=== PATIENT | female | born 1940 | race Caucasian/White ===

== ENCOUNTER 2022-03-03 08:44 | Observation (INO) | payer MEDICARE, OTHER, SELFPAY ==
[2022-03-03] VITALS (15 sets, daily range): BP systolic 97–159; BP diastolic 51–101; PULSE 56–80; RESP 14–18; TEMP 36–36.9; O2SAT 93–98; BMI 30.7; BMI 27.2
--- NOTE | 2022-03-03 08:46 | CT_ITS ---
STUDY: CTA HEAD AND NECK WITH CONTRAST REASON FOR EXAM: Female, 81 years old. CVA RADIATION DOSAGE (If Supplied By Facility): CTDIvol = ( 8.02 ) mGy, DLP = ( 383.78 ) mGycm TECHNIQUE: CT angiography was performed with a multi-detector CT scanner. Data acquisition was obtained from the skull base through the vertex following intravenous administration of IV 100mL [id number]-370. MIP images were reconstructed from the axial data set. Post-processing of the angiographic images was performed, with multiplanar reformation and 3D reconstruction. Individualized dose optimization techniques were used for this CT. COMPARISON: No relevant priors. FINDINGS: Normal bilateral petrous carotid arteries. Minimal nonocclusive calcified plaques in the right cavernous carotid artery with a normal supraclinoid bifurcation. Minimal nonocclusive calcified plaques in the left cavernous carotid artery with a normal supraclinoid bifurcation. Normal right A1 segment of the anterior cerebral artery. Normal left A1 segment of the anterior cerebral artery. Normal intact anterior communicating artery (ACOM). Normal bilateral A2 segments of the anterior cerebral arteries. Normal right M1 segment but there are multiple small vessel noncalcified atherosclerotic plaques along the M2 segments of the middle cerebral arteries, with a normal M1 bifurcation. Normal left M1 segment but multiple small vessel noncalcified atherosclerotic plaques along the M2 segments of the middle cerebral arteries, with a normal M1 bifurcation. No visible right posterior communicating artery (PCOM). No visible left posterior communicating artery (PCOM). Normal bilateral vertebral arteries. Multiple small vessel plaques along the basilar artery with a normal basilar bifurcation. The visualized bilateral superior cerebellar (SCA) arteries are normal. Multiple small vascular plaques along the bilateral P1, P2 and visualized P3 segments of the posterior cerebral arteries. High-grade stenosis in the left P2 segment but no visible thromboembolic occlusion. There is no demonstrated aneurysm of the [place]. There is no demonstrated abnormality of the visualized brain. AORTIC ARCH: Normal visualized aortic arch. Normal origins of the brachiocephalic, left common carotid, and left subclavian arteries. RIGHT CAROTID ARTERIES: Normal right common carotid artery (CCA). 50% stenosis of the right carotid bulb origin. 50% stenosis of the origin of the right internal carotid (ICA) artery without a hemodynamically significant stenosis. Widely patent remaining visualized cervical portion of the right internal carotid artery. Normal origin of the right external carotid artery (ECA). LEFT CAROTID ARTERIES: Normal left common carotid artery (CCA). Normal left carotid bulb. Widely patent origin of the left internal carotid (ICA) artery without a hemodynamically significant stenosis. Normal visualized cervical portion of the left internal carotid artery. Normal origin of the left external carotid artery (ECA). VERTEBRAL ARTERIES: Normal bilateral vertebral arteries. Less than 50% stenosis of the left vertebral artery at its subclavian origin. Widely patent subclavian and origin of the right vertebral artery. CT/STROKE CTA Head AND Neck W/Con IMPRESSION: 1. No CTA evidence of thromboembolic occlusion of the anterior and posterior intracranial circulation. 2. Multiple small vessel atherosclerotic plaques along the bilateral middle cerebral arteries, posterior cerebral arteries and along the basilar artery. There is isolated high-grade stenosis in the left P2 segment of the posterior cerebral artery but no thromboembolic occlusion. 3. 50% stenosis at the origin of the right proximal internal carotid artery/carotid bulb. The remainder of the right cervical internal carotid artery is widely patent. Normal right common carotid artery. 4. Widely patent left common carotid artery, left cervical internal and external carotid arteries. 5. Widely patent codominant vertebral arteries. 6. Normal aortic arch and origins of the great vessels. N.B. : The above Results were Read Back by Luis Self MD to Diogo Dolan MD, and understanding confirmed on 03/03/2022 09:21:26 (ET). Electronically Signed: Luis Self MD at 9:28 EST ,
--- NOTE | 2022-03-03 08:46 | CT_ITS ---
We are attempting to reach an attending provider to discuss findings. An addendum with communication details will be sent when the communication is complete. EXAM: CT HEAD WITHOUT INTRAVENOUS CONTRAST CLINICAL INDICATION: CVA TECHNIQUE: Multiple axial images were obtained of the head without intravenous contrast. This CT exam was performed using one or more of the following dose reduction techniques: automated exposure control, adjustment of the mA and/or kV according to patient size, and/or use of iterative reconstruction technique. This report was created using [employer] technology. COMPARISON: None. FINDINGS: BRAIN AND EXTRA-AXIAL SPACES: Unremarkable. No intra- or extra-axial hemorrhage. No evidence of acute infarct. No intracranial mass or mass effect. There is preservation of the [place]/white matter interface. Posterior fossa structures are unremarkable. Ventricles are appropriate for age. No hydrocephalus. Basal cisterns are patent. BONES/JOINTS: Unremarkable. No discrete lytic or blastic abnormalities. SINUSES: Unremarkable as visualized. Clear. MASTOID AIR CELLS: Unremarkable. Clear. ORBITS: Visualized globes, extraocular muscles, optic nerves and retrobulbar fat appear unremarkable. CT/STROKE Brain/Head without Cont IMPRESSION: Negative head/brain CT without intravenous contrast. Electronically Signed: Luis Self MD at 9:05 EST ,
--- NOTE | 2022-03-03 08:51 | NURSING ---
0835 STROKE ALERT CALLED
--- NOTE | 2022-03-03 09:03 | EKG12_ITS ---
Test Reason : NEURO Blood Pressure : / mmHG Vent. Rate : 060 BPM Atrial Rate : 060 BPM P-R Int : 258 ms QRS Dur : 080 ms QT Int : 422 ms P-R-T Axes : 041 010 008 degrees QTc Int : 422 ms Sinus rhythm with 1st degree A-V block Inferior infarct , age undetermined Abnormal ECG Confirmed by BIRGIT BERNARD, YAEL ([id number]), state editor HERMINIA BANEGAS ([id number]) on 03/06/2022 12:19:07 PM Referred By: AKI Confirmed By:YAEL GENAO MD
--- NOTE | 2022-03-03 09:03 | RAD_ITS ---
EXAM: XR CHEST, 1 VIEW CLINICAL INDICATION: Neuro deficit, acute, stroke suspected TECHNIQUE: Frontal view of the chest. This report was created using [employer] report generation technology. COMPARISON: None. FINDINGS: LUNGS AND PLEURAL SPACES: Pulmonary hypoinflation. No suspicious infiltrates. No pneumothorax. No effusion. HEART: Unremarkable. Cardiac silhouette not enlarged. MEDIASTINUM: Central airways and mediastinal contour are unremarkable. BONES/JOINTS: Unremarkable. SOFT TISSUES: Unremarkable. LYMPH NODES: Calcified node in the right hilum. RAD/Chest 1 View IMPRESSION: No acute findings in the chest. Electronically Signed: Luis Self MD at 9:56 EST ,
[2022-03-03 09:13] LABS: Absolute Neutrophil Count 3.6 X10^3/uL (2.0-7.7); Basophil# 0.06 X10^3/uL; Basophil% 0.8 % (0-1); Eosinophil# 0.36 X10^3/uL; Hematocrit 41.1 % (37-47); Hemoglobin 13.7 g/dL (12.0-15.0); Lymphocyte % 31.9 % (19-41); Mean Corp Hgb Conc 33.3 g/dL (32-36); Mean Corpuscular Hgb 30.1 pg (27.0-32.0); Mean Corpuscular Volume 90.3 fL (81-99); Mean Platelet Vol. 11.6 fl (6.2-12.0); Monocyte# 0.78 X10^3/uL; Monocyte% 10.8 % (0-10); NRBC Flagged by Analyzer 0 % (0-5); Neutrophil # 3.59 X10^3/uL (2.7-7.7); Neutrophil % 49.7 % (47-70); Platelet Count 305 K/mm3 (150-450); RBC Distribution Width CV 12.4 % (11.6-14.6); RBC Distribution Width SD 40.7 fl (35.1-43.9); Red Blood Count 4.55 M/mm3 (4.2-5.4); White Blood Count 7.2 K/mm3 (4.4-11.0)
[2022-03-03 09:45] LABS: International Normalized Ratio 1.1; Partial Thromboplast Time 28.2 Seconds (24.1-36.2); Prothrombin Time (Protime)PT. 13.7 SECONDS (11.7-14.9)
[2022-03-03 09:49] LABS: Anion Gap 5 (5-15); BUN 12 mg/dL (7-18); BUN/Creat Ratio 15.2 RATIO (10-20); Calcium,Total 9.1 mg/dL (8.5-10.1); Chloride 108 mmol/L (98-107); Creatinine, Serum 0.79 mg/dL (0.55-1.02); EST Glomerular Filtration Rate 74 mL/min (>60); Est Glom Filt Rate - Afr Amer 90 mL/min (>60); Glucose 122 mg/dL (74-106); Potassium 3.9 mmol/L (3.5-5.1); Sodium Level 139 mmol/L (136-145); Troponin-I HS 4 pg/mL (3.0-54.0)
--- NOTE | 2022-03-03 09:58 | EX.ED.DYSGE1 ---
HPI History of Present Illness Chief Complaint: Neuro S/Sx Informant: patient and spouse/S.O. Narrative Narrative: 81-year-old female at 752 was sitting at her kitchen table with her eating breakfast. She states that she suddenly got profoundly weak and he helped hold her up but when he took his hand away she fell backwards. She was able to get over to the couch where she vomited and had a lot of nausea and discomfort in her epigastrium. She notes that she ended up having to have a bowel movement. She was not able to speak well. She notes that through the years she has had about 8 episodes of orthostatic hypotension. No specific cause was ever found. She denies chest pain or palpitations. states that she did not appear pale or sweaty. Symptoms lasted about 15 minutes before they called EMS. EMS note that on arrival in the emergency department she seemed to be speaking better. She was taken from the EMS cot directly to the CT scanner as per prehospital stroke protocol. EMS notes that she did have some incontinence [facility] Medical History Orthostatic hypotension Rheumatoid arthritis Home Medications calcium 600 mg capsule 600 mg PO DAILY 03/03/22 [History Last Taken Unknown] cholecalciferol (vitamin D3) 50 mcg (2,000 unit) capsule (Vitamin D3) 100 mcg PO DAILY 03/03/22 [History Last Taken Unknown] thierno (Zingiber officinalis) 250 mg capsule (thierno extract) 500 mg PO DAILY 03/03/22 [History Last Taken Unknown] glucosamine sulfate 500 mg tablet (Glucosamine) 500 mg PO BID 03/03/22 [History Last Taken Unknown] uxwbkhcwjejh-nkvybgse-mztwwy tablet 1 tab PO DAILY 03/03/22 [History Last Taken Unknown] Allergy/AdvReac Type Severity Reaction Status Date / Time NSAIDS (Non-Steroidal Allergy Other Verified 03/03/22 09:10 Anti-Inflamma Social History Smoking Status: Never smoker ROS ROS ED Constitutional Constitutional ED: Denies chills or weight loss Eyes Eyes: Denies change in vision or diplopia ENT ENT ED: Denies ear pain, rhinorrhea or sore throat Cardiovascular Cardiovascular: Reports other Details: Near syncope ; Denies chest pain, orthopnea, palpitations or racing heartbeat Respiratory/Chest Respiratory/Chest: Denies cough, dyspnea or orthopnea Gastrointestinal Gastrointestinal: Denies abdominal pain, diarrhea, nausea or vomiting Genitourinary Genitourinary ED: Denies dysuria, hematuria or urinary frequency Musculoskeletal Musculoskeletal: Denies arthralgias or myalgias Integumentary Denies abscess or rash Neurologic Neurologic: Reports other Details: Speech difficulty ; Denies headache(s) or weakness Psychiatric Psychiatric: Denies anxiety, depression, suicidal ideation or suicidal thoughts Endocrine Endocrinology: Denies polydipsia, polyphagia or polyuria Allergic/Immunologic Allergic/Immunologic ED: Denies mouth swelling, tongue swelling or urticaria EXAM Physical Exam Const Vital Signs: 03/03/22 08:45 03/03/22 09:02 03/03/22 09:03 Temperature 96.8 F L 96.8 F L Temperature Source Axillary Axillary Pulse Rate 68 64 64 Pulse Rate [Lying] Pulse Rate [Sitting (for 1 minute prior to obtaining)] Pulse Rate [Standing (for 1 minute prior to obtaining)] Respiratory Rate 16 18 18 Blood Pressure 144/72 H 155/51 H 155/51 H Blood Pressure [Lying] Blood Pressure [Sitting (for 1 minute prior to obtaining)] Blood Pressure [Standing (for 1 minute prior to obtaining)] Blood Pressure Mean 96 85 85 Blood Pressure Mean [Lying] Blood Pressure Mean [Sitting (for 1 minute prior to obtaining)] Blood Pressure Mean [Standing (for 1 minute prior to obtaining)] Pulse Ox 98 94 95 Oxygen Delivery Method Room Air Room Air Room Air 03/03/22 09:03 03/03/22 09:47 03/03/22 10:00 Temperature Temperature Source Pulse Rate 59 L Pulse Rate [Lying] 59 L Pulse Rate [Sitting (for 1 minute prior to obtaining)] 57 L Pulse Rate [Standing (for 1 minute prior to obtaining)] 69 Respiratory Rate 17 Blood Pressure 97/62 Blood Pressure [Lying] 150/59 H Blood Pressure [Sitting (for 1 minute prior to obtaining)] 154/70 H Blood Pressure [Standing (for 1 minute prior to obtaining)] 159/57 H Blood Pressure Mean 73 Blood Pressure Mean [Lying] 89 Blood Pressure Mean [Sitting (for 1 minute prior to obtaining)] 98 Blood Pressure Mean [Standing (for 1 minute prior to obtaining)] 91 Pulse Ox 95 96 Oxygen Delivery Method Room Air Room Air Positive well nourished and well developed General Appearance ED: well developed HEENT Reports normocephalic, head/scalp atraumatic and moist mucous membranes Eyes PERRL and EOMs intact bilaterally Neck no lymphadenopathy, supple and no JVD Resp normal respiratory effort and clear to auscultation bilaterally Cardio regular rate, regular rhythm and no murmurs GI normal to inspection, nondistended, normoactive bowel sounds and non-tender Palpation: soft Back/Spine no CVA tenderness and normal ROM Extremity normal to inspection General Extremety ED: Negative for edema General Extremity: Negative for edema Neuro oriented x3 and CN's II-XII intact bilaterally Sensorium / Orientation: alert Motor Exam: strength 5/5 throughout Psych mental status grossly normal Mood & Affect: Negative for depressed or tearful Skin no rashes or lesions noted and no wounds MDM MDM MDM Narrative Medical decision making narrative: Head CT and CTA of the head were negative for acute stroke or large vessel occlusion. Microvascular changes were noted. Hemoglobin 13.7 with a white count of 7.2. Troponin is 4. Creatinine 0.79. Her EKG is a normal sinus rhythm with no concerning features of ACS. My interpretation of the chest x-ray is no acute process. The patient is not orthostatic. She was interviewed by neurology who recommends observation and an MRI Lab Data Attestation: I reviewed the patient's lab results. Labs: Laboratory Results - last 24 hr 03/03/22 03/03/22 03/03/22 08:23 08:23 08:23 WBC 7.2 RBC 4.55 Hgb 13.7 Hct 41.1 MCV 90.3 MCH 30.1 MCHC 33.3 RDW Std Deviation 40.7 RDW Coeff of Lonnie 12.4 Plt Count 305 MPV 11.6 Immature Gran % (Auto) 1.800 H Neut % (Auto) 49.7 Lymph % (Auto) 31.9 [place] % (Auto) 10.8 H Eos % (Auto) 5.0 Baso % (Auto) 0.8 Absolute Neuts (auto) 3.6 Absolute Lymphs (auto) 2.30 Nucleated RBC % 0 PT 13.7 INR 1.1 APTT 28.2 Sodium 139 Potassium 3.9 Chloride 108 H Carbon Dioxide 26.0 Anion Gap 5 BUN 12 Creatinine 0.79 Estim Creat Clear Calc 34.90 Est GFR (MDRD) Af Amer 90 Est GFR (MDRD) Non-Af 74 BUN/Creatinine Ratio 15.2 Glucose 122 H Calcium 9.1 Troponin I High Sens 4 Radiography Diagnostic Testing: Clinical Impression(s) from Imaging Studies Brain CT 03/03/22 08:46 IMPRESSION: Negative head/brain CT without intravenous contrast. Electronically Signed: Luis Self MD at 9:05 EST , ADDENDUM: 03/03/22914 IMPRESSION: Negative head/brain CT without intravenous contrast. N.B. : The above Results were Read Back by Luis Self MD to Diogo Dolan MD, and understanding confirmed on 03/03/2022 09:08:45 (ET). Electronically Signed: Luis Self MD at 9:05 EST , Head/Neck CTA 03/03/22 08:46 IMPRESSION: 1. No CTA evidence of thromboembolic occlusion of the anterior and posterior intracranial circulation. 2. Multiple small vessel atherosclerotic plaques along the bilateral middle cerebral arteries, posterior cerebral arteries and along the basilar artery. There is isolated high-grade stenosis in the left P2 segment of the posterior cerebral artery but no thromboembolic occlusion. 3. 50% stenosis at the origin of the right proximal internal carotid artery/carotid bulb. The remainder of the right cervical internal carotid artery is widely patent. Normal right common carotid artery. 4. Widely patent left common carotid artery, left cervical internal and external carotid arteries. 5. Widely patent codominant vertebral arteries. 6. Normal aortic arch and origins of the great vessels. N.B. : The above Results were Read Back by Luis Self MD to Diogo Dolan MD, and understanding confirmed on 03/03/2022 09:21:26 (ET). Electronically Signed: Luis Self MD at 9:28 EST , ADDENDUM: 03/03/22 0935 IMPRESSION: 1. No CTA evidence of thromboembolic occlusion of the anterior and posterior intracranial circulation. 2. Multiple small vessel atherosclerotic plaques along the bilateral middle cerebral arteries, posterior cerebral arteries and along the basilar artery. There is isolated high-grade stenosis in the left P2 segment of the posterior cerebral artery but no thromboembolic occlusion. 3. 50% stenosis at the origin of the right proximal internal carotid artery/carotid bulb. The remainder of the right cervical internal carotid artery is widely patent. Normal right common carotid artery. 4. Widely patent left common carotid artery, left cervical internal and external carotid arteries. 5. Widely patent codominant vertebral arteries. 6. Normal aortic arch and origins of the great vessels. N.B. : The above Results were Read Back by Luis Self MD to Diogo Dolan MD, and understanding confirmed on 03/03/2022 09:21:26 (ET). Electronically Signed: Luis Self MD at 9:28 EST , Chest X-Ray 03/03/22 09:03 IMPRESSION: No acute findings in the chest. Electronically Signed: Luis Self MD at 9:56 EST , EKG Initial EKG: Attestation: I personally reviewed and interpreted this EKG as follows: Interpretation: Sinus Rhythm Comments: Sinus rhythm with a first-degree AV block at a rate of 60 bpm Critical Care Time Critical Care Time: Yes Critical care time (excluding procedures): 30-74 minutes (35 min), Including time spent:, Discussing w/Patient &/or Family/Power Transmission Engineer, Discussing w/Consultants, Arranging Admission or Transfer and Performing Direct Patient Care at Bedside Discharge Plan Dx/Rx/DC Orders Clinical Impression: Near syncope, Weakness, Aphasia Disposition Disposition: Acute Care [facility]
--- NOTE | 2022-03-03 10:23 | NURSING ---
DR VILLARREAL FOR DR PRABHAKAR
--- NOTE | 2022-03-03 10:41 | NURSING ---
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
--- NOTE | 2022-03-03 10:58 | MRI_ITS ---
STUDY: MRI BRAIN WITHOUT CONTRAST REASON FOR EXAM: Female, 81 years old. stroke TECHNIQUE: Standardized multiplanar fat and water weighted pulse sequences were obtained. COMPARISON: CT earlier today FINDINGS: There is mild cerebral atrophy with widening of the extra-axial spaces and ventricular dilatation. There are a limited number of small white matter hyperintensities, distributed throughout the deep white matter tracts of the cerebral hemispheres, consistent with mild chronic white matter ischemic changes. There is no evidence for recent intracranial ischemia or other cause of cytotoxic edema on diffusion weighted imaging (DWI). Normal T2* images of the brain without demonstrated susceptibility artifact. There is no demonstrated hemosiderin stain. Normal bilateral basal ganglia. Normal thalami. There is no extra-axial fluid accumulation. Normal flow voids within the major intracranial circulation suggesting patency by spin echo criteria. Normal sella turcica, pituitary gland, infundibular stalk, optic chiasm and hypothalamus. Normal tectal plate and pineal gland. Normal midbrain, kelsey and medulla. Normal cerebellum. Normal basal cisterns. Normal bilateral temporal bones. Normal bilateral internal auditory canals. There are bilateral ocular lens implants with otherwise normal intraorbital contents. Normal visualized paranasal sinuses. Normal calvarium and skull base. Normal visualized soft tissue structures. Normal visualized upper cervical spine. MRI/Brain without Contrast IMPRESSION: Involutional changes of the brain, as described above. No acute infarct. Electronically Signed: Varinder Carreno MD at 12:59 EST ,
--- NOTE | 2022-03-03 16:11 | HP.PCM.HOS_ITS ---
HPI - General General Date of Admission: 03/03/22 Date of Service: 03/03/22 Chief Complaint: Extreme weakness HPI Narrative EMETERIO RAMESH, is a 81 F who presents to the emergency room at [facility] after having an episode of extreme weakness when she was at the kitchen table with her eating breakfast. Patient states she got profoundly weak and she felt as of all the strength drained out of her, then she felt as if she had to have a bowel movement, her helped her into the bathroom and she had a bowel movement but then she vomited following this. Patient states that she had trouble coming up with words when speaking sentences. Patient denied any chest pain, she denied any visual disturbances, she denied any focal weakness. A stroke team was called, patient underwent a CTA of the head and neck as well as a CT of the brain, all these imaging studies did not reveal any abnormality. Patient's NIH stroke score was 0. The episode the patient was describing lasted approximately 15 minutes, she ma intains that she was not back to normal when she was taken to the emergency room here but the emergency room physician felt that her stroke score was 0. Labs obtained in the emergency room were unremarkable, and MRI of the brain was able to be performed before the patient was taken to PCU, this MRI did not show any acute abnormality. Patient will be placed in observation status on PCU for presyncope. [facility] Medical History Orthostatic hypotension Rheumatoid arthritis Home Medications calcium 600 mg capsule 600 mg PO DAILY suppliment 03/03/22 [History Last Taken 03/03/22 08:00] cholecalciferol (vitamin D3) 50 mcg (2,000 unit) capsule (Vitamin D3) 100 mcg PO DAILY suppliment 03/03/22 [History Last Taken 03/03/22 08:00] cyanocobalamin (vitamin B-12) 2,500 mcg sublingual tablet 2,500 mcg sublingual DAILY suppliment 03/03/22 [History Last Taken 03/03/22 08:00] thierno (Zingiber officinalis) 250 mg capsule (thierno extract) 500 mg PO BID inflammation 03/03/22 [History Last Taken 03/03/22 08:00] glucosamine sulfate 500 mg tablet (Glucosamine) 500 mg PO BID suppliment 03/03/22 [History Last Taken 03/03/22 08:00] whxvgauwnkxl-sxxaentb-zcwyty tablet 1 tab PO DAILY 03/03/22 [History Last Taken 03/03/22 08:00] Allergy/AdvReac Type Severity Reaction Status Date / Time NSAIDS (Non-Steroidal Allergy Other Verified 03/03/22 13:14 Anti-Inflamma propofol Allergy Anaphylaxis Verified 03/03/22 13:24 erythromycin base AdvReac Nausea Verified 03/03/22 13:24 Sulfa (Sulfonamide AdvReac Rash Verified 03/03/22 13:24 Antibiotics) [sulfa drugs] Social History (Updated 03/03/22 @ 13:08 by Karie Pugh) Smoking Status: Never smoker ROS Constitutional Constitutional: Reports weakness; Denies anorexia, change in weight, chills, fever(s) or night sweats Eyes Eyes: Denies blurry vision, change in vision, discharge from eye(s) or eye pain Cardiovascular Cardiovascular: Denies chest pain, claudication, dyspnea on exertion, edema, lightheadedness or palpitations Respiratory/Chest Respiratory/Chest: Denies cough, excessive phlegm production, hemoptysis, productive cough, shortness of breath at rest or shortness of breath with exertion Gastrointestinal Gastrointestinal: Denies abdominal pain, coffee ground emesis, constipation, diarrhea, dyspepsia, hematemesis, hematochezia, melena, nausea or vomiting Genitourinary Genitourinary: Denies dysuria, hematuria, urinary frequency, urinary hesitancy, urinary incontinence or urinary urgency Musculoskeletal Musculoskeletal: Denies back pain, joint pain, joint stiffness, joint swelling, myalgias or neck pain Neurologic Neurologic: Reports abnormal speech and other Details: Patient complained of generalized weakness and inability to move all extremities, she also complained that she had difficulty with completing sentences ; Denies abnormal gait, confusion, disequilibrium, dizziness, focal weakness, headache(s), loss of vision, numbness, other visual disturbances, paresthesias, syncope or tingling Psychiatric Psychiatric: Denies anxiety, cognitive impairment, depression, irritability, mood swings or suicidal ideation Endocrine Endocrinology: Denies change in body appearance, cold intolerance, excessive sweating, heat intolerance, polydipsia or polyuria Hematologic/Lymphatic Hematologic/Lymphatic: Denies none, anemia, easy bleeding, easy bruising or lymphadenopathy Allergic/Immunologic Allergic/Immunologic: Denies rhinitis, urticaria, eczemia or asthma Vital Signs Vital Signs Vital Signs: 03/03/22 08:45 03/03/22 09:02 03/03/22 09:03 Temperature 96.8 F L 96.8 F L Temperature Source Axillary Axillary Pulse Rate 68 64 64 Pulse Rate [Lying] Pulse Rate [Sitting (for 1 minute prior to obtaining)] Pulse Rate [Standing (for 1 minute prior to obtaining)] Respiratory Rate 16 18 18 Respiratory Effort Respiratory Depth Respiratory Pattern Blood Pressure 144/72 H 155/51 H 155/51 H Blood Pressure [Lying] Blood Pressure [Sitting (for 1 minute prior to obtaining)] Blood Pressure [Standing (for 1 minute prior to obtaining)] Blood Pressure Mean 96 85 85 Blood Pressure Mean [Lying] Blood Pressure Mean [Sitting (for 1 minute prior to obtaining)] Blood Pressure Mean [Standing (for 1 minute prior to obtaining)] Blood Pressure Source Blood Pressure Position Blood Pressure Location Pulse Ox 98 94 95 Oxygen Delivery Method Room Air Room Air Room Air 03/03/22 09:03 03/03/22 09:47 03/03/22 10:00 Temperature Temperature Source Pulse Rate 59 L Pulse Rate [Lying] 59 L Pulse Rate [Sitting (for 1 minute prior to obtaining)] 57 L Pulse Rate [Standing (for 1 minute prior to obtaining)] 69 Respiratory Rate 17 Respiratory Effort Respiratory Depth Respiratory Pattern Blood Pressure 97/62 Blood Pressure [Lying] 150/59 H Blood Pressure [Sitting (for 1 minute prior to obtaining)] 154/70 H Blood Pressure [Standing (for 1 minute prior to obtaining)] 159/57 H Blood Pressure Mean 73 Blood Pressure Mean [Lying] 89 Blood Pressure Mean [Sitting (for 1 minute prior to obtaining)] 98 Blood Pressure Mean [Standing (for 1 minute prior to obtaining)] 91 Blood Pressure Source Blood Pressure Position Blood Pressure Location Pulse Ox 95 96 Oxygen Delivery Method Room Air Room Air 03/03/22 10:25 03/03/22 11:00 03/03/22 13:26 Temperature 97.0 F L 98.4 F Temperature Source Temporal Temporal Pulse Rate 57 L 56 L 61 Pulse Rate [Lying] Pulse Rate [Sitting (for 1 minute prior to obtaining)] Pulse Rate [Standing (for 1 minute prior to obtaining)] Respiratory Rate 18 14 14 Respiratory Effort Respiratory Depth Respiratory Pattern Blood Pressure 126/61 H 144/101 H 136/67 H Blood Pressure [Lying] Blood Pressure [Sitting (for 1 minute prior to obtaining)] Blood Pressure [Standing (for 1 minute prior to obtaining)] Blood Pressure Mean 82 115 90 Blood Pressure Mean [Lying] Blood Pressure Mean [Sitting (for 1 minute prior to obtaining)] Blood Pressure Mean [Standing (for 1 minute prior to obtaining)] Blood Pressure Source Monitor Blood Pressure Position Semi-Fowlers Blood Pressure Location Right Arm Pulse Ox 95 97 96 Oxygen Delivery Method Room Air Room Air Room Air 03/03/22 13:34 03/03/22 13:01 03/03/22 13:49 Temperature Temperature Source Pulse Rate 63 Pulse Rate [Lying] Pulse Rate [Sitting (for 1 minute prior to obtaining)] Pulse Rate [Standing (for 1 minute prior to obtaining)] Respiratory Rate Respiratory Effort Normal Non-Labored Respiratory Depth Normal Respiratory Pattern Normal Blood Pressure Blood Pressure [Lying] Blood Pressure [Sitting (for 1 minute prior to obtaining)] Blood Pressure [Standing (for 1 minute prior to obtaining)] Blood Pressure Mean Blood Pressure Mean [Lying] Blood Pressure Mean [Sitting (for 1 minute prior to obtaining)] Blood Pressure Mean [Standing (for 1 minute prior to obtaining)] Blood Pressure Source Blood Pressure Position Blood Pressure Location Pulse Ox 96 Oxygen Delivery Method Room Air Room Air 03/03/22 15:42 Temperature Temperature Source Pulse Rate 64 Pulse Rate [Lying] Pulse Rate [Sitting (for 1 minute prior to obtaining)] Pulse Rate [Standing (for 1 minute prior to obtaining)] Respiratory Rate Respiratory Effort Respiratory Depth Respiratory Pattern Blood Pressure Blood Pressure [Lying] Blood Pressure [Sitting (for 1 minute prior to obtaining)] Blood Pressure [Standing (for 1 minute prior to obtaining)] Blood Pressure Mean Blood Pressure Mean [Lying] Blood Pressure Mean [Sitting (for 1 minute prior to obtaining)] Blood Pressure Mean [Standing (for 1 minute prior to obtaining)] Blood Pressure Source Blood Pressure Position Blood Pressure Location Pulse Ox Oxygen Delivery Method Weight Weight: 67.5 kg Body Mass Index (BMI) 27.2 Physical Exam Const alert, oriented x3, no apparent distress, average body habitus and healthy appearing General Appearance: cooperative, well kempt and well developed Orientation / Consciousness: awake, oriented to person, oriented to place and oriented to time HEENT normocephalic, head/scalp atraumatic, hearing grossly normal bilaterally and moist oral mucous membranes Eyes PERRL, EOMs intact bilaterally and conjunctivae normal Neck supple, no JVD, thyroid normal and no carotid bruits General: trachea midline Resp normal respiratory effort, no retractions, no use of accessory muscles and clear to auscultation bilaterally Auscultation: Negative for rales, rhonchi or wheezes Cardio regular rate, regular rhythm, S1 normal heart sound, no murmurs, no rub and no gallops GI normal to inspection, nondistended, normoactive bowel sounds, soft to palpation, non-tender and non-distended Extremity no clubbing, cyanosis or edema Skin no rashes or lesions noted General Skin Exam: no breakdown Neuro oriented x3, CN's II-XII intact bilaterally, no focal motor deficits and no sensory deficits noted Sensorium / Orientation: awake and alert Speech: speech normal Psych affect normal Results Lab / Micro Data Result Diagrams: 03/03/22 08:23 03/03/22 08:23 Labs: Laboratory Results - last 24 hr 03/03/22 08:23: WBC 7.2, RBC 4.55, Hgb 13.7, Hct 41.1, MCV 90.3, MCH 30.1, MCHC 33.3, RDW Std Deviation 40.7, RDW Coeff of Lonnie 12.4, Plt Count 305, MPV 11.6, Immature Gran % (Auto) 1.800 H, Neut % (Auto) 49.7, Lymph % (Auto) 31.9, [place] % (Auto) 10.8 H, Eos % (Auto) 5.0, Baso % (Auto) 0.8, Absolute Neuts (auto) 3.6, Absolute Lymphs (auto) 2.30, Nucleated RBC % 0 03/03/22 08:23: PT 13.7, INR 1.1, APTT 28.2 03/03/22 08:23: Sodium 139, Potassium 3.9, Chloride 108 H, Carbon Dioxide 26.0, Anion Gap 5, BUN 12, Creatinine 0.79, Estim Creat Clear Calc 34.90, Est GFR (MDRD) Af Amer 90, Est GFR (MDRD) Non-Af 74, BUN/Creatinine Ratio 15.2, Glucose 122 H, Calcium 9.1, Troponin I High Sens [address] 03/03/22 08:46 IMPRESSION: Negative head/brain CT without intravenous contrast. Electronically Signed: Luis Self MD at 9:05 EST , ADDENDUM: 03/03/2215 IMPRESSION: Negative head/brain CT without intravenous contrast. N.B. : The above Results were Read Back by Luis Self MD to Diogo Dolan MD, and understanding confirmed on 03/03/2022 09:08:45 (ET). Electronically Signed: Luis Self MD at 9:05 EST , Head/Neck CTA 03/03/22 08:46 IMPRESSION: 1. No CTA evidence of thromboembolic occlusion of the anterior and posterior intracranial circulation. 2. Multiple small vessel atherosclerotic plaques along the bilateral middle cerebral arteries, posterior cerebral arteries and along the basilar artery. There is isolated high-grade stenosis in the left P2 segment of the posterior cerebral artery but no thromboembolic occlusion. 3. 50% stenosis at the origin of the right proximal internal carotid artery/carotid bulb. The remainder of the right cervical internal carotid artery is widely patent. Normal right common carotid artery. 4. Widely patent left common carotid artery, left cervical internal and external carotid arteries. 5. Widely patent codominant vertebral arteries. 6. Normal aortic arch and origins of the great vessels. N.B. : The above Results were Read Back by Luis Self MD to Diogo Dolan MD, and understanding confirmed on 03/03/2022 09:21:26 (ET). Electronically Signed: Luis Self MD at 9:28 EST , ADDENDUM: 03/03/22 0935 IMPRESSION: 1. No CTA evidence of thromboembolic occlusion of the anterior and posterior intracranial circulation. 2. Multiple small vessel atherosclerotic plaques along the bilateral middle cerebral arteries, posterior cerebral arteries and along the basilar artery. There is isolated high-grade stenosis in the left P2 segment of the posterior cerebral artery but no thromboembolic occlusion. 3. 50% stenosis at the origin of the right proximal internal carotid artery/carotid bulb. The remainder of the right cervical internal carotid artery is widely patent. Normal right common carotid artery. 4. Widely patent left common carotid artery, left cervical internal and external carotid arteries. 5. Widely patent codominant vertebral arteries. 6. Normal aortic arch and origins of the great vessels. N.B. : The above Results were Read Back by Luis Self MD to Diogo Dolan MD, and understanding confirmed on 03/03/2022 09:21:26 (ET). Electronically Signed: Luis Self MD at 9:28 EST , Chest X-Ray 03/03/22 09:03 IMPRESSION: No acute findings in the chest. Electronically Signed: Luis Self MD at 9:56 EST , Brain MRI 03/03/22 10:58 IMPRESSION: Involutional changes of the brain, as described above. No acute infarct. Electronically Signed: Varinder Carreno MD at 12:59 EST , Assessment & Plan Assessment/Plan (1) Near syncope: PLAN: Plan 1. Presyncope-etiology unclear, possibly secondary to vasovagal reaction, patient was placed in observation status on PCU, she will be monitored on telemetry, I do not feel she needs NIH scores performed. Again the patient's MRI of the brain was unremarkable. I briefly talked to the patient about perhaps taking a baby aspirin if she wanted this episode worked up further as an outpatient, she was resistant to taking a baby aspirin due to concerns of bruising and bleeding. Patient states she had a recent cholesterol done as an outpatient, I asked her to ask her to bring in her results tomorrow so that I could review them. #2 past history of hypotensive episodes-patient relates to a past history of hypotensive episodes over the past few years, the latest episode was last July, she states she felt as if she was going to pass out and got extremely weak while she was outside in the garden, she had to lie down for it to pass. She never went to the hospital for this event. Charges/Coding Visit Charges OBSV E&M: 56964 Initial observation care L2
[2022-03-04] VITALS (7 sets, daily range): BP systolic 121–148; BP diastolic 59–74; PULSE 62–77; RESP 16; TEMP 36.6–36.8; O2SAT 93–96; BMI 27.2
--- NOTE | 2022-03-04 10:34 | DCINST_ITS ---
Discharge Instructions Diet Discharge Diet: No restrictions Activity Discharge Activity: Return to Normal Activity Weight Bearing Status: Full weight bearing Follow Up Care Test Results: Test results from this visit will be discussed in further detail at your follow- up appointment, if applicable. Discharge Plan Admission Admit Date/Time: 03/03/22 10:39 Primary Reason for Your Visit: presyncope Attending Provider: Fabio Ferguson Primary Care Provider: Aníbal Lewis Discharge Orders/Prescriptions Prescriptions: New atorvastatin [Lipitor] 20 mg tablet 20 mg PO DAILY Qty: 30 0RF aspirin 81 mg tablet,delayed release (DR/EC) 81 mg PO DAILY Qty: 1 0RF Continued calcium 600 mg Capsule 600 mg PO DAILY glucosamine sulfate [Glucosamine] 500 mg Tablet 500 mg PO BID Rx Instructions: administer with meals thierno extract 250 mg Capsule 500 mg PO BID [id number]-[id number]-jbxlrl Tablet 1 tab PO DAILY cholecalciferol (vitamin D3) [Vitamin D3] 50 mcg (2,000 unit) Capsule 100 mcg PO DAILY cyanocobalamin (vitamin B-12) 2,500 mcg Tablet, Sublingual 2,500 mcg SUBLINGUAL DAILY Referrals / Follow Up: Aníbal Lewis MD [Primary Care Provider] - Within 2 Weeks Disposition Disposition (needs filled in before D/C Order can be placed): Home, Self Care
--- NOTE | 2022-03-04 10:38 | DS.PCM_ITS ---
Providers Date of Admission: 03/03/22 Date of Discharge: 03/04/22 Primary Care Physician: Dr. Aníbal Lewis MD Reason For Visit: APHASIA NEAR SYNCOPE Diagnosis Discharge Diagnosis (1) Near syncope: Status: Acute Code(s): R55 - Syncope and collapse Plan 1. Presyncope-etiology unclear, possibly secondary to vasovagal reaction, patient was placed in observation status on PCU, she will be monitored on telemetry, I do not feel she needs NIH scores performed. Again the patient's MRI of the brain was unremarkable. I briefly talked to the patient about perhaps taking a baby aspirin if she wanted this episode worked up further as an outpatient, she was resistant to taking a baby aspirin due to concerns of bruising and bleeding. Patient states she had a recent cholesterol done as an outpatient, I asked her to ask her to bring in her results tomorrow so that I could review them. #2 past history of hypotensive episodes-patient relates to a past history of hypotensive episodes over the past few years, the latest episode was last July, she states she felt as if she was going to pass out and got extremely weak while she was outside in the garden, she had to lie down for it to pass. She never went to the hospital for this event. Medications at Discharge Home Medications calcium 600 mg capsule 600 mg PO DAILY suppliment 03/03/22 cholecalciferol (vitamin D3) 50 mcg (2,000 unit) capsule (Vitamin D3) 100 mcg PO DAILY suppliment 03/03/22 cyanocobalamin (vitamin B-12) 2,500 mcg sublingual tablet 2,500 mcg sublingual DAILY suppliment 03/03/22 thierno (Zingiber officinalis) 250 mg capsule (thierno extract) 500 mg PO BID inflammation 03/03/22 glucosamine sulfate 500 mg tablet (Glucosamine) 500 mg PO BID suppliment 1 05/04/21 fjpvlljiffvq-djxkfjym-gefzkz tablet 1 tab PO DAILY vitamin 03/03/22 aspirin 81 mg tablet,delayed release 81 mg PO DAILY #1 TAB 03/04/22 atorvastatin 20 mg tablet (Lipitor) 20 mg PO DAILY #30 tabs 03/04/22 Hospital Course Operations None Procedures None Summary of Care Provided Minutes Spent on Discharge: 31 Hospital Course: This 81-year-old white female was seen in the emergency room at [facility] after having an episode of severe weakness and inability to move at home. Patient also had to be taken to the bathroom for a bowel movement. Squad was called and the patient was brought in for evaluation, imaging studies did not show any evidence of stroke, patient's lab work was unremarkable, teleneurology did not recommend administration of tPA. Patient's NIH score was 0 in the emergency room. Patient was placed in observation status on PCU and monitored on telemetry, patient had no additional episodes, she had no significant arrhythmias. I had a discussion with the patient concerning her medical care, I recommended that the patient take an 81 mg baby aspirin and take cholesterol medication (patient had a recent outpatient LDL cholesterol performed on 02/14/2022-result was 131), I was not sure that the patient actually had a TIA however. Patient related to this examiner several episodes over the past few years where she became extremely weak and there was an episode in July 2021 where she was outside and this happened and she had to lie down on the grass. She did not seek medical care at that time however. Patient agreed with my recommendation to take an 81 mg aspirin daily and go on cholesterol medication. On 03/04/2022, patient was seen and examined: On examination she appeared in good health and spirits, she does not appear to be in any distress. Vital signs as documented. Skin warm and dry and without overt rashes. Neck without JVD, thyroid appears normal, trachea is midline, neck is supple. Lungs clear, normal air movement was noted. Heart exam notable for regular rhythm, normal sounds and absence of murmurs, rubs or gallops. Abdomen unremarkable and without evidence of organomegaly, masses, or abdominal aortic enlargement, bowel sounds are present in all 4 quadrants, no abdominal tenderness was noted. Extremities nonedematous, no cyanosis was noted, no clubbing was noted. Neuro: Cranial nerves II through XII are grossly intact, no focal motor deficits were noted, sensation to light touch and pinprick is intact, motor exam 5/5 throughout. Psych: Patient is alert and oriented x3, she does not appear anxious or depressed, she does not appear agitated. Patient was discharged home in stable condition on 03/04/2022 Weight / BMI Weight Weight: 67.5 kg Body Mass Index (BMI) 27.2 ABG / Lab / Microbiology Data Result Diagrams: 12/03/22 08:23 03/03/22 08:23 Radiography Diagnostic Testing: Radiology Impression Brain MRI 03/03/22 10:58 IMPRESSION: Involutional changes of the brain, as described above. No acute infarct. Electronically Signed: Varinder Carreno MD at 12:59 EST , D/C Instructions Discharge Diet: No restrictions Weight Bearing Status: Full weight bearing Meaningful Use Info Meaningful Use Diagnoses (Choose all that apply): None applicable Discharge Plan Admission Admit Date/Time: 03/03/22 10:39 Primary Reason for Your Visit: presyncope Attending Provider: Fabio Ferguson Primary Care Provider: Aníbal Lewis Instructions Additional Instructions / Restrictions: Patient Problems: Altered Health Status related to Hospitalization Patient Goals: *Optimal Level of Health *Keep Appointments *Medication Compliance *Remain Safe Discharge Orders/Prescriptions Prescriptions: New atorvastatin [Lipitor] 20 mg tablet 20 mg PO DAILY Qty: 30 0RF aspirin 81 mg tablet,delayed release (DR/EC) 81 mg PO DAILY Qty: 1 0RF Continued calcium 600 mg Capsule 600 mg PO DAILY glucosamine sulfate [Glucosamine] 500 mg Tablet 500 mg PO BID Rx Instructions: administer with meals thierno extract 250 mg Capsule 500 mg PO BID [id number]-[id number] Tablet 1 tab PO DAILY cholecalciferol (vitamin D3) [Vitamin D3] 50 mcg (2,000 unit) Capsule 100 mcg PO DAILY cyanocobalamin (vitamin B-12) 2,500 mcg Tablet, Sublingual 2,500 mcg SUBLINGUAL DAILY Referrals / Follow Up: Aníbal Lewis MD [Primary Care Provider] - Within 2 Weeks Disposition Disposition (needs filled in before D/C Order can be placed): Home, Self Care Charges/Coding Visit Charges OBSV E&M: 86678 Observation care discharge
== END 2022-03-04 10:38 | disposition home or self-care (01) ==
LOC: ED 10:29 → PCU 13:01
PROVIDERS: Admitting Provider Internal Medicine; Emergency Provider Emergency Medicine; PCP Internal Medicine; Visit Provider Internal Medicine
DX: R55 Syncope and collapse (principal); M06.9 Rheumatoid arthritis, unspecified; R47.01 Aphasia; R47.89 Other speech disturbances; R11.2 Nausea with vomiting, unspecified; R53.1 Weakness
CPT/HCPCS: 70450; 70496; 70498; 70551; 71045; 80048; 84484; 85025; 85610; 85730; 93005; 99218; 99285; Q9967; G0378